=== PATIENT | male | born 1940 | race Caucasian/White ===

== ENCOUNTER 2017-10-17 08:41 | Day surgery (SDC) | payer MEDICARE, BC ==
[2017-10-17] VITALS (15 sets, daily range): BP systolic 95–137; BP diastolic 55–83
[~2017-10-17 08:41] MED LIST: ATEN-169 PO; BENA1TAB13 PO; CLON-529 PO; FINA5TAB11 PO; FLO0.4C PO; HYDR-3965 PO; LOVA20TA2 PO; PIOG30TA2 PO; ZOLP5TAB8 PO
[2017-10-17] MEDS ORDERED: ZOLP5TAB8 PO (09:24)
[2017-10-17] MEDS ORDERED: IBAN150T PO (09:24)
[2017-10-17] MEDS ORDERED: FURO-150 PO (09:24)
[2017-10-17] MEDS ORDERED: SEVE800T7 PO (09:24)
[2017-10-17] MEDS ORDERED: DAILYVITE PO (09:24)
[2017-10-17] MEDS ORDERED: FLUT1DIS4 INH (09:24)
[2017-10-17] MEDS ORDERED: TIOT18CA3 INH (09:24)
[2017-10-17] MEDS ORDERED: ALB0.5UD IH (09:24)
[2017-10-17] MEDS ORDERED: midazolam 2 mg/2 ml injection IV PRN (09:25)
[2017-10-17] MEDS ORDERED: fentaNYL/PF 50MCG/1 ML 2ML syringe IV PRN (09:25)
[2017-10-17] MEDS ORDERED: LIDOcaine 1%/PF (10mg/ml) 5ml vial SQ ONE (09:25)
[2017-10-17] MEDS ORDERED: heparin 1,000 units/ml 10ml inj ICATH ONE (09:25)
[2017-10-17] MEDS ORDERED: normal saline 1000ml 1,000 ML IV SCH (09:25)
[2017-10-17] MEDS ORDERED: LIDOcaine 1%/PF (10mg/ml) 5ml vial ONE (09:49)
[2017-10-17 09:51] LABS: BASOPHILS % (AUTO) 0.1 % (0-1); EOSINOPHILS # (AUTO) 0.2 X10'3 (0-0.9); EOSINOPHILS % (AUTO) 2.2 % (0-6); HEMATOCRIT 22.3 % (42.0-52.0); HEMOGLOBIN 7.4 g/dl (14.0-17.9); LYMPHOCYTES # (AUTO) 6.4 X10'3 (1.1-4.8); LYMPHOCYTES % (AUTO) 61.5 % (21-51); MEAN CORPUSCULAR HEMOGLOBIN 30.7 PG (27.0-31.0); MEAN CORPUSCULAR VOLUME 92.9 FL (78-98); MEAN PLATELET VOLUME 7.7 FL (7.4-10.4); MONOCYTES # (AUTO) 0.6 X10'3 (0-0.9); MONOCYTES % (AUTO) 5.7 % (2-12); NEUTROPHILS # (AUTO) 3.1 X10'3 (1.8-7.7); NEUTROPHILS % (AUTO) 30.5 % (42-75); PLATELET COUNT 140 X10'3 (140-440); RED CELL DISTRIBUTION WIDTH 17.5 % (11.5-14.5); WHITE BLOOD COUNT 10.3 X10'3 (4.5-11.0)
[2017-10-17] MEDS ORDERED: fentaNYL/PF 50MCG/1 ML 2ML syringe ONE (10:01)
[2017-10-17] MEDS ORDERED: heparin 1,000unit/ml 10ml vial 10 ML ONE (10:01)
[2017-10-17] MEDS ORDERED: midazolam 2 mg/2 ml injection ONE (10:01)
[2017-10-17 10:04] LABS: ANISOCYTOSIS 1+; PLATELET ESTIMATE DECREASED; POIKILOCYTOSIS FEW; TOTAL CELLS COUNTED 100
[2017-10-17 10:06] LABS: PROTHROMBIN TIME 10.3 SECONDS (9.0-12.0)
[2017-10-17 10:09] LABS: ALBUMIN 3.3 G/DL (3.4-5.0); ANION GAP 10 (8-16); BLOOD UREA NITROGEN 26 MG/DL (7-18); BUN/CREATININE RATIO 6.9 (5.4-32.0); CALCIUM 9.5 MG/DL (8.5-10.1); CHLORIDE 106 MMOL/L (99-107); CREATININE 3.75 MG/DL (0.60-1.10); GLUCOSE 100 MG/DL (70-104); POTASSIUM 3.9 MMOL/L (3.5-5.1); SODIUM 142 MMOL/L (135-145); TOTAL CARBON DIOXIDE 26.5 MMOL/L (24-32); eGFR 16 ML/MIN
== END 2017-10-17 12:15 | disposition home or self-care (01) ==
LOC: SSTAY O 08:41
PROVIDERS: ATTEND Radiology Diagnostic Radiology
DX: I12.0 Hypertensive chronic kidney disease with stage 5 chronic kidney disease or end stage renal disease (principal); N18.6 End stage renal disease; F17.200 Nicotine dependence, unspecified, uncomplicated; J43.9 Emphysema, unspecified; Z90.5 Acquired absence of kidney; Z79.82 Long term (current) use of aspirin; Z98.42 Cataract extraction status, left eye; Z98.41 Cataract extraction status, right eye; Z79.2 Long term (current) use of antibiotics; Z79.891 Long term (current) use of opiate analgesic; Z79.899 Other long term (current) drug therapy; Z98.890 Other specified postprocedural states
CPT/HCPCS: 36415; 36558; 76937; 77001; 80048; 85025; 85610; 99152; 99153; A9270; C1750; C1894; J1644; J2001; J2250; J3010; J7030; A4620

== ENCOUNTER → 2020-09-23 | Emergency (ER) | payer MEDICARE, BC ==
[~2020-09-23] VITALS: Ht 165.1 cm; Wt 70.5 kg
[~2020-09-23] MED LIST changes: +ASPI-611 PO; -ATEN-169 PO; -BENA1TAB13 PO; -CLON-529 PO; +GABA300C PO; +HYDR-3964 PO; -HYDR-3965 PO; -LOVA20TA2 PO; +PANT-47 PO; -PIOG30TA2 PO; +PIOG30TA71 PO; +SEVE800T7 PO; +VITA0.4T16 PO; +ZOLP10TA PO; -ZOLP5TAB8 PO
[2020-09-23 10:00] VITALS: BP 119/59
== END | disposition left against medical advice (07) ==
LOC: ER 09:54
DX: E87.71 Transfusion associated circulatory overload (principal); Z53.21 Procedure and treatment not carried out due to patient leaving prior to being seen by health care provider
CPT/HCPCS: 88305